=== PATIENT | female | born 1985 | race Caucasian/White ===

== ENCOUNTER → 2018-12-02 | Outpatient (CLI) | payer BC, OTHER ==
[~2018-12-02] MED LIST: FAMO1TAB21 PO; FERR325T18 PO; IBUP-1773 PO; Ibuprofen PO; PREN1TAB19 PO
--- NOTE | 2018-12-02 12:30 | Diagnostic Imaging Report ---
PROCEDURE: US Non-ob pelvis comp/trans. TECHNIQUE: Multiple realtime grayscale images were obtained of the pelvis in various projections endovaginally. Transabdominal imaging was also performed. INDICATION: Right-sided pelvic pain. FINDINGS: Uterus measures 8.1 x 6.3 x 4.5 cm. No myometrial mass is seen. Endometrium is approximately 12 mm in thickness. Right ovary measures 4.6 x 4.4 x 3.3 cm and the left ovary measures 3.7 x 1.5 x 1.9 cm. There is a complex cyst involving the right ovary measuring 4.1 x 2.5 x 3.2 cm. This most likely represents a hemorrhagic cyst. There is blood flow to the ovaries. There is a small amount of free fluid adjacent to right ovary. IMPRESSION: Complex, probable hemorrhagic cyst involving the right ovary. No other significant abnormality is seen. Dictated by: Dictated on workstation # [id number]
== END ==
LOC: RAD 11:00
PROVIDERS: ATTEND Obstetrics & Gynecology
DX: R10.2 Pelvic and perineal pain (principal)
CPT/HCPCS: 76830; 76856

== ENCOUNTER → 2019-03-26 | Outpatient (CLI) | payer SELFPAY ==
--- NOTE | 2019-03-26 13:21 | Diagnostic Imaging Report ---
INDICATION: survey. TECHNIQUE: Multiple real-time grayscale images were obtained over the gravid uterus. COMPARISON: None. FINDINGS: There is a single live fetus in a breech presentation. heart rate was recorded at 158 beats per minute. Placenta is anterior. Amniotic fluid index is 11.9 cm. Cervical length is 4.1 cm. survey demonstrates kidneys, bladder, and stomach to be unremarkable. brain is unremarkable. There is a four-chamber heart. There is a three-vessel cord with normal insertion. spine is unremarkable. Maternal adnexa were not evaluated. Biometrical measurements are as follows: Biparietal 4.60 cm, age 20 weeks 0 days. Head circumference 17.90 cm, age 20 weeks 3 days. Abdominal circumference 15.51 cm, age 20 weeks 5 days. Femur length 3.24 cm, age 20 weeks 1 days. Sonographic estimate age: 20 weeks 3 days. Sonographic estimated date of delivery: 08/10/2019. Estimated Weight: 351 gm (+/- 2 gm). LMP percentile: 60%. heart rate: 158 beats per minute. number: 1 of 1. IMPRESSION: Single live IUP at 20 weeks 3 days gestational age. Estimated date of confinement sonographically is 08/10/2019. Dictated by: Dictated on workstation # [id number]
== END ==
LOC: RAD 12:16
PROVIDERS: ATTEND Nurse Practitioner Women's Health
DX: Z34.92 Encounter for supervision of normal pregnancy, unspecified, second trimester (principal); Z3A.20 20 weeks gestation of pregnancy
CPT/HCPCS: 76805

== ENCOUNTER 2020-04-25 13:00 | Outpatient (RCR) | payer OTHER ==
[~2020-04-25 13:00] MED LIST changes: +DOCU-143 PO; +IBUP-1780 PO; +METR-145 PO; +OXYC1TAB87 PO
== END 2020-06-26 09:12 | disposition home or self-care (01) ==
PROVIDERS: ATTEND Physical Therapist
DX: M54.5 Low back pain (principal); M25.652 Stiffness of left hip, not elsewhere classified; M25.651 Stiffness of right hip, not elsewhere classified